=== PATIENT | male | born 1955 | race Caucasian/White ===

== ENCOUNTER 2018-02-23 21:07 | Emergency (ER) | payer MEDICAID ==
[~2018-02-23] VITALS: Ht 172.7 cm; Wt 68.5 kg
[2018-02-23 21:14] VITALS: Ht 172.7 cm; Wt 68.5 kg
[2018-02-23 22:02] LABS: BASOPHIL % 1.7 % (0-2); PLATELET COUNT 199 x10^3mcL (130-400); RED CELL DISTRIBUTION WIDTH 14.2 % (11.5-14.5)
[2018-02-23 22:17] LABS: CARBON DIOXIDE 26.7 mmol/L (21-32); POTASSIUM SERUM 4.5 mmol/L (3.5-5.1)
[2018-02-23 22:22] LABS: ALBUMIN 2.9 g/dL (3.4-5.0); BILIRUBIN TOTAL 0.3 mg/dL (0.20-1.00); TOTAL PROTEIN, SERUM 6.1 g/dL (6.4-8.2)
[2018-02-23] MEDS ORDERED: ZESTRIL20 MG PO (23:08)
[2018-02-23] MEDS ORDERED: METFORMIN HYDR500 M1 PO (23:08)
[2018-02-23] MEDS ORDERED: METFORMIN HCL500 MG PO (23:08)
[2018-02-23 23:55] VITALS: BP 119/92
== END 2018-02-24 00:38 | disposition home or self-care (01) ==
LOC: ED 21:07
PROVIDERS: Emergency Medicine
DX: I10 Essential (primary) hypertension (principal); E11.65 Type 2 diabetes mellitus with hyperglycemia; R53.1 Weakness; R51 Headache
CPT/HCPCS: J7030; Q0092